=== PATIENT | female | born 1980 | race Caucasian/White ===

== ENCOUNTER 2017-03-04 18:58 | Emergency (ER) | payer OTHER ==
[~2017-03-04] VITALS: Ht 154.9 cm; Wt 65.8 kg
[2017-03-04] MEDS ORDERED: METOPROLOL TART50 M1 PO (19:19)
--- NOTE | 2017-03-04 19:20 | ED ANKLE/FOOT INJURY COMPLAINT ---
History of Present Illness General Chief Complaint: Foot or Ankle Injury Stated Complaint: RIGHT ANKLE PAIN Source: patient Exam Limitations: no limitations Vital Signs & Intake/Output Vital Signs & Intake/Output Vital Signs Date Time Temp Pulse Resp B/P Pulse O2 O2 Flow FiO2 Ox Delivery Rate 03/04 2011 88 18 132/76 96 Room Air 03/04 1902 98.0 70 16 138/84 100 Room Air ED Intake and Output 03/05 0000 03/04 1200 Intake Total Output Total Balance Patient 145 lb Weight Allergies Coded Allergies: MDX - Sulfamethoxazole (From BACTRIM) (RASH, SENSITIVE SKIN 09/12/13) MDX - Trimethoprim (From BACTRIM) (RASH, SENSITIVE SKIN 09/12/13) Triage Note: PT STATES THAT 1.5 HOURS AGO SHE ROLLED HER R ANKLE. TOOK MOTRIN PRIOR TO ARRIVAL Triage Nurses Notes Reviewed? yes Occurred: this afternoon Duration: worse persistent since (1 DAY) Timing: recent history Severity: moderate Severity Numbers: 6 Pain/Injury Location: Right: Ankle. Method of Injury: twisted Modifying Factors: Improves With: immobilization. Worsens With: movement. 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 She reports that she initially rolled her right ankle 2 weeks ago and reports that the pain never really went away but it did improve. Today she was walking down some steps and she rolled it again. The pain is now worse. Achy throbbing. Worse with weightbearing. Denies any other injuries or falls. No numbness or tingling. She reports that the pain is mostly located on the lateral aspect of the right ankle. Has been using Tylenol [id number] without relief. (KAITLIN BLACK,[place]) Reconcile Medications Metoprolol Tartrate 50 MG TABLET 1 TAB PO BID TACHYCARDIA (Reported) Tramadol HCl 50 MG TABLET 1 TAB PO BIDP PRN pain (FRIDA PUTNAM,KARLY) Past History Travel History Traveled to [place] past 21 day No Medical History Any Pertinent Medical History? see below for history Neurological: NONE EENT: NONE Cardiovascular: NONE Respiratory: NONE Gastrointestinal: NONE Hepatic: NONE Renal: NONE Musculoskeletal: NONE Psychiatric: NONE Endocrine: NONE Blood Disorders: NONE Cancer(s): NONE ENGINE BUILDER/Reproductive: NONE Surgical History Surgical History: non-contributory Psychosocial History What is your primary language Kenyan Tobacco Use: Never used ETOH Use: denies use Illicit Drug Use: denies illicit drug use Family History Hx Contributory? No ([place] CASE) Review of Systems Review of Systems Constitutional: Reports: no symptoms. Comments Review of systems: See HPI, All other systems negative. Constitutional, no chills fever or weight loss HEENT: No visual changes no sore throat no congestion Cardiovascular: No chest pain Skin, no jaundice no rashes Respiratory: No dyspnea cough sputum or hemoptysis GI: No nausea no vomiting Muscle skeletal: no back pain, no neck pain, Neurologic: No numbness no confusion Psych: No stress anxiety Immunology: No splenectomy or history of AIDS ([place] CASE) Physical Exam Physical Exam General Appearance: well developed/nourished, no apparent distress, alert, awake , comfortable Leg/Knee/Thigh Left: normal range of motion, normal inspection Comments: Well-developed well-nourished person in no acute distress HEENT: Nose is atraumatic. Neck: Normal inspection Cardiovascular: Pedal pulses are 2+ bilaterally. Respiratory: No respiratory distress. Extremity: Right Ankle with moderate tenderness laterally over the lateral ligaments. No bony tenderness. No medial tenderness. Range of motion is near full but somewhat limited due to pain. No instability is noted. Skin is intact, mild swelling and ecchymosis laterally. The foot is neurovascularly intact with sensation and motor grossly intact. There is no foot tenderness or fifth metatarsal tenderness. Able to move all toes. Neuro: Alert oriented x3, motor sensory normal and the Lortab as bilaterally. Skin: No appreciable rash on exposed skin, skin is warm and dry. Psych: Mood and affect is normal, memory and judgment is normal. ([place] CASE) Progress Differential Diagnosis: septic arthritis, fracture, dislocation, sprain, contusion Plan of Care: Orders Procedure Date/time Status Durable Medical Equipment 03/04 1940 Active Diagnostic Imaging: Viewed by Me: Radiology Read. Discussed w/RAD: Radiology Read. Radiology Impression: PATIENT: ANTONIO AMOS PRESENT AGE: 36 PATIENT ACCOUNT NO: [id number] : 79 LOCATION: [facility] ORDERING PHYSICIAN: JESUS GREER DO SERVICE DATE: 03/04/17 EXAM TYPE: RAD - XRY-ANKLE 3 OR MORE VIEWS R EXAMINATION: RIGHT ANKLE 3 VIEWS CLINICAL INFORMATION: Rolling injury. Right ankle pain. COMPARISON: None. TECHNIQUE: AP, lateral, oblique views of the right ankle were obtained. FINDINGS : There are no fractures or dislocations. There is soft tissue swelling overlying the lateral malleolus. No ankle joint effusion is identified. IMPRESSION: Soft tissue swelling without fracture or dislocation. No ankle joint effusion. ([place] CASE) Departure Departure Time of Disposition: 1935 Disposition: HOME OR SELF CARE Condition: Stable Clinical Impression Primary Impression: Ankle sprain Qualifiers: Encounter type: initial encounter Involved ligament of ankle: unspecified ligament Laterality: right Qualified Code: S93.401A - Sprain of unspecified ligament of right ankle, initial encounter Referrals: SERAFIN PUTNAM,YURI Van (PCP/Family) Additional Instructions: Follow-up with her primary care physician call to make an appointment. Rest ice and elevate over the next several days. Use brace for support. He is crutches for support as well. Return for worsening symptoms or concerns. Take anti- inflammatories as directed. Departure Forms: Customer Survey General Discharge Information ([place] CASE) Departure Prescriptions: Current Visit Scripts Tramadol HCl 1 TAB PO BIDP PRN pain #5 TAB PA/WATER FILTERER Co-Sign Statement Statement: ED Attending supervision documentation- [] I saw and evaluated the patient. I have also reviewed all the pertinent lab results and diagnostic results. I agree with the findings and the plan of care as documented in the PA's/WATER FILTERER's documentation. [X] I have reviewed the ED Record and agree with the PA's/WATER FILTERER's documentation. [] Additions or exceptions (if any) to the PAs/WATER FILTERER's note and plan are summarized below: [] (FRIDA PUTNAM,KARLY) Procedures Splinting Location: RIGHT ANKLE Manual Alignment Performed: No Pre-Made Type: velcro Splint: sugar-tong Splint Applied By: splint applied by other (NURSING) Pre-Proc Neuro Vasc Exam: normal Post-Proc Neuro Vasc Exam: normal Progress: Tolerated procedure well. ([place] CASE)
--- NOTE | 2017-03-04 19:33 | RADIOLOGY REPORT ---
EXAMINATION: RIGHT ANKLE 3 VIEWS CLINICAL INFORMATION: Rolling injury. Right ankle pain. COMPARISON: None. TECHNIQUE: AP, lateral, oblique views of the right ankle were obtained. FINDINGS: There are no fractures or dislocations. There is soft tissue swelling overlying the lateral malleolus. No ankle joint effusion is identified. IMPRESSION: Soft tissue swelling without fracture or dislocation. No ankle joint effusion.
[2017-03-04] MEDS ORDERED: TRAMADOL HCL50 M1 PO (19:48)
[2017-03-04 20:11] VITALS: BP 132/76
== END 2017-03-04 20:11 ==
LOC: ERH 18:58
DX: S93.401A Sprain of unspecified ligament of right ankle, initial encounter (principal); X58.XXXA Exposure to other specified factors, initial encounter; Y92.9 Unspecified place or not applicable; Y93.9 Activity, unspecified
CPT/HCPCS: 73610-RT